=== PATIENT | female | born 1990 | race Two or more races ===

== ENCOUNTER 2022-12-26 10:23 | Outpatient (CLI) | payer OTHER | END 2022-12-26 12:27 | disposition home or self-care (01) | LOC: PRENATAL 10:23 | PROVIDERS: ATTEND Obstetrics & Gynecology Maternal & Fetal Medicine | DX: O36.80X0 Pregnancy with inconclusive fetal viability, not applicable or unspecified (principal); Z36.82 Encounter for antenatal screening for nuchal translucency; Z36 Encounter for antenatal screening of mother; O09.219 Supervision of pregnancy with history of pre-term labor, unspecified trimester; Z3A.11 11 weeks gestation of pregnancy ==

== ENCOUNTER 2023-03-06 11:01 | Outpatient (CLI) | payer OTHER | END 2023-03-06 11:04 | disposition home or self-care (01) | LOC: PRENATAL 11:01 | PROVIDERS: ATTEND Obstetrics & Gynecology Maternal & Fetal Medicine | DX: O35.3XX0 Maternal care for (suspected) damage to fetus from viral disease in mother, not applicable or unspecified (principal); O44.00 Complete placenta previa NOS or without hemorrhage, unspecified trimester; O99.342 Other mental disorders complicating pregnancy, second trimester; Z3A.21 21 weeks gestation of pregnancy ==

== ENCOUNTER 2023-06-01 12:11 | Inpatient (IN) | payer OTHER ==
[~2023-06-01] VITALS: Ht 165.1 cm; Wt 90.3 kg
[2023-06-01] MEDS ORDERED: ZOLOFT50 MG PO (12:25)
[2023-06-01] MEDS ORDERED: PRENATAL TABLE1 EAC1 PO (12:25)
[2023-06-01 13:49] LABS: HEMATOCRIT 34.4 % (36.0-45.00); HEMOGLOBIN 11.9 g/dL (12.0-15.00); MEAN CELL VOLUME 90.1 fL (80.00-100.00); MEAN CORPUSCULAR HEMOGLOBIN 31.2 pg (27.00-32.0); MEAN CORPUSCULAR HGB CONC 34.6 g/dl (32.0-36.0); PLATELET COUNT 233 K/uL (150-450); RED BLOOD COUNT 3.82 M/uL (4.00-6.00); RED CELL DISTRIBUTION WIDTH 12.5 % (11.5-14.5)
[2023-06-01 14:06] LABS: PH,URINE 6.5 (5.0-8.0); URINE APPEARANCE Clear; URINE BILIRRUBIN Negative (NEGATIVE); URINE BLOOD Negative; URINE COLOR Yellow; URINE GLUCOSE Negative (NEGATIVE); URINE LEUKOCYTE Moderate; URINE NITRATE Negative; URINE PROTEIN Negative (NEGATIVE); URINE UROBILINOGEN 0.2 E.U./dl
[2023-06-01 14:07] LABS: URINE BACTERIA 206.5 uL (0.0-1933); URINE EPITHELIAL CELLS 7.2 uL (0.0-38.8); URINE RBC 8.4 uL (0.0-20.8); URINE WBC 4.6 uL (0.0-23.2)
[2023-06-01 14:25] LABS: INR < 0.93; PARTIAL THROMBOPLASTIN TIME 26.2 SECONDS (22.0-34.0); PROTHROMBIN TIME 9.8 SECONDS (9.0-11.5)
[2023-06-01 14:29] LABS: ALBUMIN 3.1 gm/dL (3.4-5.0); BILIRUBIN TOTAL 0.25 mg/dL (0.3-1.2); CREATININE SERUM 0.61 mg/dL (0.55-1.02); GFR 111.61; GLOBULINA 3.9 G/DL (2.4-3.5); POTASSIUM 3.75 mEq/L (3.5-5.1)
== END 2023-06-03 20:49 | DRG 833 ==
LOC: LDR 12:11 → OB/GYN 06-02 09:44
PROVIDERS: ADMIT Obstetrics & Gynecology; ATTEND Obstetrics & Gynecology
PROC: 4A1HXCZ Monitoring of Products of Conception, Cardiac Rate, External Approach (ICD-10-PCS; principal; 2023-06-01)
PROC: BY4FZZZ Ultrasonography of Third Trimester, Single Fetus (ICD-10-PCS; 2023-06-01)
DX: O60.03 Preterm labor without delivery, third trimester (principal); O26.843 Uterine size-date discrepancy, third trimester; O36.8130 Decreased fetal movements, third trimester, not applicable or unspecified; Z3A.35 35 weeks gestation of pregnancy; Z20.822 Contact with and (suspected) exposure to COVID-19

== ENCOUNTER 2023-06-18 19:51 | Inpatient (IN) | payer OTHER ==
[~2023-06-18] VITALS: Ht 162.6 cm; Wt 88.9 kg
[~2023-06-18 19:51] MED LIST: PRENATAL TABLE1 EAC1 PO; ZOLOFT50 MG PO
[2023-06-18] MEDS ORDERED: RINGERS SOLUTION,LACTATED 1,000 ML IV SCH (20:30)
[2023-06-18 20:36] LABS: HEMATOCRIT 34.8 % (36.0-45.00); MEAN CELL VOLUME 88.5 fL (80.00-100.00); MEAN CORPUSCULAR HEMOGLOBIN 30.6 pg (27.00-32.0); MEAN CORPUSCULAR HGB CONC 34.6 g/dl (32.0-36.0); PLATELET COUNT 230 K/uL (150-450); RED BLOOD COUNT 3.92 M/uL (4.00-6.00); RED CELL DISTRIBUTION WIDTH 12.5 % (11.5-14.5); URINE APPEARANCE Clear; URINE BILIRRUBIN Negative (NEGATIVE); URINE BLOOD Negative; URINE COLOR Yellow; URINE GLUCOSE Negative (NEGATIVE); URINE LEUKOCYTE Large; URINE NITRATE Negative; URINE PROTEIN Negative (NEGATIVE); URINE UROBILINOGEN 0.2 E.U./dl
[2023-06-18 20:37] LABS: URINE EPITHELIAL CELLS 31.3 uL (0.0-38.8); URINE RBC 13.9 uL (0.0-20.8); URINE WBC 182.9 uL (0.0-23.2)
[2023-06-18 21:00] LABS: INR < 0.93; PARTIAL THROMBOPLASTIN TIME 25.6 SECONDS (22.0-34.0); PROTHROMBIN TIME 9.5 SECONDS (9.0-11.5)
[2023-06-18 21:08] LABS: ALBUMIN 2.8 gm/dL (3.4-5.0); BILIRUBIN TOTAL 0.2 mg/dL (0.3-1.2); CALCIUM 9.1 mg/dL (8.5-10.1); CREATININE SERUM 0.56 mg/dL (0.55-1.02); GFR 123.19; POTASSIUM 3.72 mEq/L (3.5-5.1); TOTAL PROTEIN 6.8 gm/dL (6.4-8.2)
[2023-06-18] MEDS ORDERED: CHLORHEXIDINE GLUCONATE 120 ML BOTTLE TOP ONE (21:31)
[2023-06-18] MEDS ORDERED: ERYTHROMYCIN BASE 1 GM TUBE OP ONE (21:31)
[2023-06-18] MEDS ORDERED: PROMETHAZINE HCL 25 MG/ML AMPUL ONE (21:33)
[2023-06-18] MEDS ORDERED: OXYTOCIN 500 ML IV ONE (22:45)
[2023-06-18] MEDS ORDERED: MEPERIDINE HCL/PF 50 MG/ML VIAL IV ONE (23:00)
[2023-06-18] MEDS ORDERED: PROMETHAZINE HCL 25 MG/ML AMPUL IV ONE (23:00)
[2023-06-18] MEDS ORDERED: OXYTOCIN 500 ML IV SCH (23:45)
[2023-06-19] MEDS ORDERED: CHLORHEXIDINE GLUCONATE 120 ML BOTTLE TP SCH (02:00)
[2023-06-19] MEDS ORDERED: ERYTHROMYCIN BASE 1 GM TUBE OP SCH (02:00)
[2023-06-19] MEDS ORDERED: LIDOCAINE HCL 1% 200MG/20ML VIAL IJ SCH (02:00)
[2023-06-19] MEDS ORDERED: OXYTOCIN 20 UNITS/1000ML RL PIGGYBAG IV SCH (02:15)
[2023-06-19] MEDS ORDERED: IBUprofen 800 MG TABLET PO PRN (06:30)
[2023-06-19] MEDS ORDERED: IBUprofen 400 MG TABLET PO SCH (08:00)
[2023-06-19 11:23] LABS: HEMATOCRIT 31.3 % (36.0-45.00); HEMOGLOBIN 10.8 g/dL (12.0-15.00); MEAN CELL VOLUME 88.3 fL (80.00-100.00); MEAN CORPUSCULAR HEMOGLOBIN 30.3 pg (27.00-32.0); MEAN CORPUSCULAR HGB CONC 34.3 g/dl (32.0-36.0); PLATELET COUNT 175 K/uL (150-450); RED BLOOD COUNT 3.55 M/uL (4.00-6.00); RED CELL DISTRIBUTION WIDTH 12.9 % (11.5-14.5)
== END 2023-06-21 14:10 | disposition home or self-care (01) | DRG 807 ==
LOC: LDR 19:51 → OB/GYN 06-19 07:57
PROVIDERS: ADMIT Obstetrics & Gynecology; ATTEND Obstetrics & Gynecology
PROC: 4A1HXCZ Monitoring of Products of Conception, Cardiac Rate, External Approach (ICD-10-PCS; 2023-06-18)
PROC: 10E0XZZ Delivery of Products of Conception, External Approach (ICD-10-PCS; principal; 2023-06-19)
DX: O60.14X0 Preterm labor third trimester with preterm delivery third trimester, not applicable or unspecified (principal); Z37.0 Single live birth; Z3A.36 36 weeks gestation of pregnancy; Z20.822 Contact with and (suspected) exposure to COVID-19